=== PATIENT | female | born 1975 | race Caucasian/White ===

== ENCOUNTER 2020-07-02 10:34 | Inpatient (IN) | payer BC, SELFPAY ==
[2020-02-28 10:05] VITALS: BMI 31.1
[2020-07-02] VITALS (8 sets, daily range): BP systolic 122–155; BP diastolic 11–111; PULSE 91–118; RESP 16–18; TEMP 36.3–37.3; O2SAT 95–98; BMI 26.6; BMI 27.6
--- NOTE | 2020-07-02 10:53 | EKG12_ITS ---
Test Reason : SUB ABUSE Blood Pressure : / mmHG Vent. Rate : 108 BPM Atrial Rate : 108 BPM P-R Int : 132 ms QRS Dur : 090 ms QT Int : 350 ms P-R-T Axes : 061 032 054 degrees QTc Int : 469 ms Sinus tachycardia Otherwise normal ECG Confirmed by LETICIA VILLARREAL, BONIFACIO ([id number]), story editor SHIRLEY HSIEH ([id number]) on 07/04/2020 8:19:14 AM Referred By: Confirmed By:BONIFACIO KELLY MD
--- NOTE | 2020-07-02 11:14 | EX.ED.DYSGE1 ---
HPI History of Present Illness Chief Complaint: Substance Abuse Informant: patient and spouse/S.O. Onset/Context/Timing Onset: Month(s) Context: Gradual Onset Timing: Continuous Quality: Drinks approximately 1/5 of vodka daily since December Location: Home Current Severity: Moderate Maximum Severity: Severe Worsened by: Abstinence Relieved by: Drinking Associated Symptoms Associated Symptoms: Abdominal cramps, tremors, withdrawal-like symptoms Narrative Narrative: Patient is a 44-year-old woman with history of hypertension who has not been compliant with her medication. Who presents with significant other for detox. She has been drinking for years. Since December she has been consuming approximately 1/5 of vodka per day. She works in the [employer]. She denies smoking. She denies drug use. She states she is never entered a detox program. She presents today because it is interfering with her work and she knows she needs help and cannot stop on her own. She denies headache, visual disturbance, ringing in ears or decreased hearing. Denies trouble with speech or swallowing. She denies cardiac or respiratory symptoms. She does report intermittent cramping abdominal pain. She states her stool has been maroon and attributes the color to drinking cranberry juice. The stool does not have an odor and not sticky. She also reports pink-colored urine. She denies dysuria, frequency, urgency or hematuria. She has had no recent falls or head trauma. She denies history of coagulopathy. Prior similar symptoms: Yes Recent Illness/Hospitalization: No [facility] Medical History HTN (hypertension) Home Medications atenolol 25 mg tablet 25 mg PO DAILY 02/28/20 [History Last Taken Unknown] levonorgestrel 20 mcg/24 hours (6 yrs) 52 mg intrauterine device 1 device INTRA-UTER ONCE 02/28/20 [History Last Taken Unknown] melatonin 3 mg capsule 3 mg PO HS PRN 02/28/20 [History Last Taken Unknown] Allergy/AdvReac Type Severity Reaction Status Date / Time Penicillins AdvReac Mild PT UNSURE Verified 02/28/20 09:59 OF REACTION Family History Unknown Breast cancer Grandfather CVA (cerebral vascular accident) Surgical History History of tonsillectomy History of tubal ligation Social History household members: spouse and children number of children: 4 current occupational status: employed current occupation: [employer] history of recent travel: No sexually active: Yes Smoking Status: Never smoker alcohol intake: never substance use type: does not use what type of physical activity do you participate in: walking and bicycling seatbelt use: always do you feel safe at home: Yes additional social history: - Dayne JENSEN ROS ED Constitutional Constitutional ED: Reports sweats; Denies chills, fever(s) or subjective Eyes Eyes: Denies blurry vision, change in vision or diplopia ENT ENT ED: Denies ear pain, rhinorrhea or sore throat Cardiovascular Cardiovascular: Reports palpitations and racing heartbeat; Denies chest pain or orthopnea Respiratory/Chest Respiratory/Chest: Reports cough; Denies dyspnea, dyspnea on exertion, orthopnea or sputum Gastrointestinal Gastrointestinal: Reports abdominal pain and nausea; Denies constipation, diarrhea, melena or vomiting Genitourinary Genitourinary ED: Denies dysuria, hematuria or urinary frequency Musculoskeletal Musculoskeletal: Denies arthralgias, back pain, myalgias or neck pain Integumentary Denies rash Neurologic Neurologic: Denies headache(s), paresthesias or weakness Psychiatric Psychiatric: Reports anxiety and depression; Denies suicidal thoughts Allergic/Immunologic Allergic/Immunologic ED: Denies mouth swelling or urticaria EXAM Physical Exam Const Vital Signs: 07/02/20 10:35 07/02/20 11:33 Temperature 97.3 F L 97.3 F L Temperature Source Temporal Temporal Pulse Rate 114 H 114 H Respiratory Rate 16 16 Blood Pressure 150/111 H 150/11 H Blood Pressure Mean 124 57 Blood Pressure Source Monitor Blood Pressure Position Semi-Fowlers Pulse Ox 96 96 Oxygen Delivery Method Room Air Room Air Positive well nourished and well developed General Appearance ED: well developed and other Patient appears anxious HEENT Reports TM's clear and moist mucous membranes Negative for trauma or tenderness Tympanic Membrane ED: Yes TM's clear Eyes PERRL and EOMs intact bilaterally General Eye ED: Negative for pale conjunctiva or scleral icterus Neck no lymphadenopathy, supple and no JVD Neck Narrative: Trachea is midline. Chest Wall inspection of chest normal Resp normal respiratory effort and clear to auscultation bilaterally Effort and Inspection: Negative for pain with movement Cardio regular rhythm, S1 normal heart sound, S2 normal heart sound and no murmurs Rate: tachycardic GI normal to inspection, nondistended, normoactive bowel sounds Back/Spine no CVA tenderness Cervical Spine: Negative for cervical spine tenderness Thoracic Spine / Upper Back: Negative for thoracic spinal tenderness or paraspinal muscle tenderness Extremity normal to inspection General Extremety ED: Negative for edema or tenderness General Extremity: Negative for edema Neuro oriented x3, CN's II-XII intact bilaterally and no sensory deficits noted Sensorium / Orientation: alert and other Reflexes are brisk and there is 4-5 beats of clonus at the ankles bilaterally. Motor Exam: strength 5/5 throughout Psych mental status grossly normal Mood & Affect: anxious Skin no rashes or lesions noted and no wounds MDM MDM MDM Narrative Medical decision making narrative: Baseline blood work was ordered to assess H&H because of reported pink-colored urine and maroon-colored stool to rule out anemia. Also complains of metabolic panel was obtained to assess liver enzymes and BUN to creatinine ratio which would be elevated if patient has acute recent GI bleed. PT/INR was obtained to rule out coagulopathy in light of the amount of alcohol she consumes per day. Patient is experiencing withdrawal symptoms of is treated with IV lorazepam and p.o. phenobarb. Patient will need admission for alcohol withdrawal. Lab Data Attestation: I reviewed the patient's lab results. Labs: Laboratory Results - last 24 hr 07/02/20 07/02/20 07/02/20 11:10 11:10 11:10 WBC 5.6 RBC 4.44 Hgb 15.0 Hct 43.7 MCV 98.4 MCH 33.8 H MCHC 34.3 RDW Std Deviation 45.0 H RDW Coeff of Gabriella 12.3 Plt Count 117 L MPV 9.9 Immature Gran % (Auto) 0.500 Neut % (Auto) 79.0 H Lymph % (Auto) 9.3 L [place] % (Auto) 10.7 H Eos % (Auto) 0.0 Baso % (Auto) 0.5 Absolute Neuts (auto) 4.4 Absolute Lymphs (auto) 0.52 L Nucleated RBC % 0 PT 12.3 INR 1.0 Sodium 134 L Potassium 3.2 L Chloride 95 L Carbon Dioxide 27.0 Anion Gap 12 BUN 11 Creatinine 0.57 Estim Creat Clear Calc 121.20 Est GFR (MDRD) Af Amer 148 Est GFR (MDRD) Non-Af 122 BUN/Creatinine Ratio 19.4 Glucose 108 H Calcium 9.4 Total Bilirubin 1.70 H AST 159 H ALT 101 H Alkaline Phosphatase 96 Total Protein 7.9 Albumin 4.0 Globulin 3.9 Albumin/Globulin Ratio 1.0 Urine Opiates Screen Urine Methadone Screen Ur Barbiturates Screen Ur Phencyclidine Scrn Ur Amphetamines Screen U Methamphetamin-MDMA U Benzodiazepines Scrn Urine Cocaine Screen U Cannabinoids Screen Ur Drug Screen Comment Ethyl Alcohol 07/02/20 07/02/20 11:10 11:20 WBC RBC Hgb Hct MCV MCH MCHC RDW Std Deviation RDW Coeff of Gabriella Plt Count MPV Immature Gran % (Auto) Neut % (Auto) Lymph % (Auto) [place] % (Auto) Eos % (Auto) Baso % (Auto) Absolute Neuts (auto) Absolute Lymphs (auto) Nucleated RBC % PT INR Sodium Potassium Chloride Carbon Dioxide Anion Gap BUN Creatinine Estim Creat Clear Calc Est GFR (MDRD) Af Amer Est GFR (MDRD) Non-Af BUN/Creatinine Ratio Glucose Calcium Total Bilirubin AST ALT Alkaline Phosphatase Total Protein Albumin Globulin Albumin/Globulin Ratio Urine Opiates Screen NEGATIVE Urine Methadone Screen NEGATIVE Ur Barbiturates Screen NEGATIVE Ur Phencyclidine Scrn NEGATIVE Ur Amphetamines Screen NEGATIVE U Methamphetamin-MDMA NEGATIVE U Benzodiazepines Scrn NEGATIVE Urine Cocaine Screen NEGATIVE U Cannabinoids Screen POSITIVE H Ur Drug Screen Comment Ethyl Alcohol 100.0 Talk screen is positive for cannabis. Alcohol level is 100. CBC and H&H unremarkable. BUN/creatinine ratio is normal. Suspect her stool is colored because of cranberry juice. EKG Initial EKG: Interpretation: Sinus Tachycardia (Ventricular rate 108. LA interval is 132 ms. QS duration 90 ms. QT duration 350 ms. [place] is normal. Other than the tachycardia the EKG is normal.) Treatment and Re-Evaluation Comments:: Plan is to page hospitalist for admission to detox for alcohol withdrawal. Discharge Plan Dx/Rx/DC Orders Clinical Impression: Alcohol withdrawal, Sinus tachycardia by electrocardiogram, High blood pressure Disposition Disposition: Acute Care [facility]
[2020-07-02 11:17] LABS: Absolute Lymphocyte Count 0.52 X10^3/uL (0.83-4.51); Absolute Neutrophil Count 4.4 X10^3/uL (2.0-7.7); Basophil# 0.03 X10^3/uL; Basophil% 0.5 % (0-1); Hematocrit 43.7 % (37-47); Lymphocyte # 0.52 X10^3/ul (0.83-4.51); Lymphocyte % 9.3 % (19-41); Mean Corp Hgb Conc 34.3 g/dL (32-36); Mean Corpuscular Hgb 33.8 pg (27.0-32.0); Mean Corpuscular Volume 98.4 fL (81-99); Mean Platelet Vol. 9.9 fl (6.2-12.0); Monocyte% 10.7 % (0-10); NRBC Flagged by Analyzer 0 % (0-5); Neutrophil # 4.44 X10^3/uL (2.7-7.7); POSITIVE DIFFERENTIAL YES; Platelet Count 117 K/mm3 (150-450); RBC Distribution Width CV 12.3 % (11.6-14.6); Red Blood Count 4.44 M/mm3 (4.2-5.4); White Blood Count 5.6 K/mm3 (4.4-11.0)
[2020-07-02 11:23] LABS: Differential Indicated SCAN CRITERIA MET
[2020-07-02 11:25] LABS: Prothrombin Time (Protime)PT. 12.3 SECONDS (11.7-14.9)
[2020-07-02] MEDS: LORazepam 2 MG/ML Syringe 1 MG IV (11:25)
[2020-07-02] MEDS: Phenobarbital 32.4 MG Tablet 97.2 MG PO (11:25)
[2020-07-02 11:32] LABS: BUN 11 mg/dL (7-18); BUN/Creat Ratio 19.4 RATIO (10-20); Creatinine, Serum 0.57 mg/dL (0.55-1.02); EST Glomerular Filtration Rate 122 mL/min (>60); Est Glom Filt Rate - Afr Amer 148 mL/min (>60); Glucose 108 mg/dL (74-106); Protein, Total 7.9 g/dL (6.4-8.2)
[2020-07-02 11:33] LABS: AST(SGOT) 159 U/L (15-37); Alanine Aminotransfer ALT/SGPT 101 U/L (13-56); Alkaline Phosphatase 96 U/L (45-117); Anion Gap 12 (5-15); Calcium,Total 9.4 mg/dL (8.5-10.1); Chloride 95 mmol/L (98-107); Globulin 3.9 g/dL (2.2-4.2); Potassium 3.2 mmol/L (3.5-5.1); Sodium Level 134 mmol/L (136-145)
[2020-07-02] MEDS: Ondansetron 4 MG/2 ML Vial IV (11:41)
[2020-07-02 11:52] LABS: Amphetamine Urine VISTA NEGATIVE (<1000 ng/mL); Barbiturate Urine VISTA NEGATIVE (< 200 ng/mL); Benzodiazepine Urine VISTA NEGATIVE (< 200 ng/mL); Cocaine Urine VISTA NEGATIVE (< 300 ng/mL); Ecstacy Urine VISTA NEGATIVE (< 500 ng/mL); Methadone Urine VISTA NEGATIVE (< 300 ng/mL); PCP Urine VISTA NEGATIVE (< 25 ng/mL); THC Urine VISTA POSITIVE (< 50 ng/mL); Vista UDS pH Range 5
--- NOTE | 2020-07-02 12:25 | HP.PCM.HOS_ITS ---
HPI - General General Date of Admission: 07/02/20 HPI Narrative JOZEF MORAES, is a 44 F who presents with tremors, feeling hot and cold, generalised malaise seeking assistance for medical stabilization from acute alcohol withdrawal. She has been drinking about 1/2 pint of vodka daily since December 2019 when her mother . She drinks and goes into withdrawal and then has to drink to prevent withdrawal. Her vitals in the ED showed elevated BP and HR because she has not been taking her atenolol. [facility] Medical History HTN (hypertension) Home Medications atenolol 25 mg tablet 25 mg PO DAILY 02/28/20 [History Last Taken Unknown] levonorgestrel 20 mcg/24 hours (6 yrs) 52 mg intrauterine device 1 device INTRA- UTER ONCE 02/28/20 [History Last Taken Unknown] melatonin 3 mg capsule 3 mg PO HS PRN 02/28/20 [History Last Taken 07/01/20 22:00] Allergy/AdvReac Type Severity Reaction Status Date / Time Penicillins AdvReac Mild Other Verified 07/02/20 15:15 Family History (Updated 07/02/20 @ 20:[address] Shayy James MD) Unknown Breast cancer Mother Grandfather CVA (cerebral vascular accident) Father Alcoholism Surgical History History of tonsillectomy History of tubal ligation Social History household members: spouse and children number of children: 4 current occupational status: employed current occupation: [employer] history of recent travel: No sexually active: Yes Smoking Status: Former smoker alcohol intake: never substance use type: does not use what type of physical activity do you participate in: walking and bicycling seatbelt use: always do you feel safe at home: Yes additional social history: - Dayne ROS Constitutional Constitutional: Reports anorexia, chills, fatigue, malaise and weakness; Denies fever(s) Eyes Eyes: Denies blurry vision, change in eye color, change in vision or discharge from eye(s) Gastrointestinal Gastrointestinal: Denies abdominal pain, coffee ground emesis, constipation, diarrhea, dyspepsia or hematemesis Genitourinary Genitourinary: Denies burning urination, difficulty urinating, dysuria or urinary frequency Musculoskeletal Musculoskeletal: Denies arthralgias, back pain, joint pain, joint stiffness or joint swelling Neurologic Neurologic: Denies abnormal gait, abnormal speech, confusion, disequilibrium, dizziness or focal weakness Psychiatric Psychiatric: Reports anxiety; Denies depression, homicidal ideation or suicidal ideation Endocrine Endocrinology: Denies change in body appearance, cold intolerance, excessive sweating or heat intolerance Hematologic/Lymphatic Hematologic/Lymphatic: Denies anemia, easy bleeding or easy bruising Vital Signs Vital Signs Vital Signs: 07/02/20 10:35 07/02/20 11:33 Temperature 97.3 F L 97.3 F L Temperature Source Temporal Temporal Pulse Rate 114 H 114 H Respiratory Rate 16 16 Blood Pressure 150/111 H 150/11 H Blood Pressure Mean 124 57 Blood Pressure Source Monitor Blood Pressure Position Semi-Fowlers Pulse Ox 96 96 Oxygen Delivery Method Room Air Room Air Physical Exam Const alert and oriented x3 Constitutional Narrative: appears slightly anxious General Appearance: cooperative HEENT normocephalic, head/scalp atraumatic, moist oral mucous membranes and oropharynx normal Eyes PERRL, EOMs intact bilaterally and conjunctivae normal Neck no lymphadenopathy and supple Resp normal respiratory effort and clear to auscultation bilaterally Cardio regular rate, regular rhythm, S1 normal heart sound, S2 normal heart sound and no murmurs GI normal to inspection, nondistended, normoactive bowel sounds, soft to palpation, non-tender, non-distended and hepatosplenomegaly Extremity normal to inspection Skin no rashes or lesions noted Neuro oriented x3 Sensorium / Orientation: awake and alert Psych Mood & Affect: anxious Lab / Micro Data Result Diagrams: 07/02/20 11:10 07/02/20 11:10 Labs: Laboratory Results - last 24 hr 07/02/20 07/02/20 07/02/20 11:10 11:10 11:10 WBC 5.6 RBC 4.44 Hgb 15.0 Hct 43.7 MCV 98.4 MCH 33.8 H MCHC 34.3 RDW Std Deviation 45.0 H RDW Coeff of Gabriella 12.3 Plt Count 117 L MPV 9.9 Immature Gran % (Auto) 0.500 Neut % (Auto) 79.0 H Lymph % (Auto) 9.3 L [place] % (Auto) 10.7 H Eos % (Auto) 0.0 Baso % (Auto) 0.5 Absolute Neuts (auto) 4.4 Absolute Lymphs (auto) 0.52 L Nucleated RBC % 0 PT 12.3 INR 1.0 Sodium 134 L Potassium 3.2 L Chloride 95 L Carbon Dioxide 27.0 Anion Gap 12 BUN 11 Creatinine 0.57 Estim Creat Clear Calc 121.20 Est GFR (MDRD) Af Amer 148 Est GFR (MDRD) Non-Af 122 BUN/Creatinine Ratio 19.4 Glucose 108 H Calcium 9.4 Total Bilirubin 1.70 H AST 159 H ALT 101 H Alkaline Phosphatase 96 Total Protein 7.9 Albumin 4.0 Globulin 3.9 Albumin/Globulin Ratio 1.0 Urine Opiates Screen Urine Methadone Screen Ur Barbiturates Screen Ur Phencyclidine Scrn Ur Amphetamines Screen U Methamphetamin-MDMA U Benzodiazepines Scrn Urine Cocaine Screen U Cannabinoids Screen Ur Drug Screen Comment Ethyl Alcohol 07/02/20 07/02/20 11:10 11:20 WBC RBC Hgb Hct MCV MCH MCHC RDW Std Deviation RDW Coeff of Gabriella Plt Count MPV Immature Gran % (Auto) Neut % (Auto) Lymph % (Auto) [place] % (Auto) Eos % (Auto) Baso % (Auto) Absolute Neuts (auto) Absolute Lymphs (auto) Nucleated RBC % PT INR Sodium Potassium Chloride Carbon Dioxide Anion Gap BUN Creatinine Estim Creat Clear Calc Est GFR (MDRD) Af Amer Est GFR (MDRD) Non-Af BUN/Creatinine Ratio Glucose Calcium Total Bilirubin AST ALT Alkaline Phosphatase Total Protein Albumin Globulin Albumin/Globulin Ratio Urine Opiates Screen NEGATIVE Urine Methadone Screen NEGATIVE Ur Barbiturates Screen NEGATIVE Ur Phencyclidine Scrn NEGATIVE Ur Amphetamines Screen NEGATIVE U Methamphetamin-MDMA NEGATIVE U Benzodiazepines Scrn NEGATIVE Urine Cocaine Screen NEGATIVE U Cannabinoids Screen POSITIVE H Ur Drug Screen Comment Ethyl Alcohol 100.0 Assessment & Plan Assessment/Plan (1) Alcohol withdrawal: QUALIFIERS: Complication of substance-induced condition: uncomplicated Qualified Code(s): F10.230 - Alcohol dependence with withdrawal, uncomplicated (2) Sinus tachycardia by electrocardiogram: (3) High blood pressure: QUALIFIERS: Hypertension type: essential hypertension Qualified Code(s): I10 - Essential (primary) hypertension (4) Hypokalemia: (5) Thrombocytopenia: (6) Elevated liver enzymes: PLAN: 1. Acute alcohol withdrawal, will monitor on phenobarb withdrawal protocol Continue on Folic acid and thiamine 2. Hypokalemia, will replace, recheck in am 3. Tachycardia, elevated BP secondary to beta-martha withdrawal effect vs alcohol withdrawal History of hypertension, on atenolol Will resume patient's atenolol, continue to monitor vitals 4, Thrombocytopenia, new, drop from 260 to 117, likely secondary to alcohol, Will monitor Visit Charges Inpatient E&M: 41887 Init Hosp L2
--- NOTE | 2020-07-02 13:40 | CM.ED ---
SOCIAL WORK Referral Source: Dr. Cuevas Reason for Referral: Substance Abuse-requesting detox from alcohol Met with patient in room. Introduced role and reason for referral. Patient reports relapsed with alcohol after mother . Patient reports has been to detox in the past, but not at [facility]. Education on [facility] provided. Patient reports signed agreement and reports no questions or concerns. Call to [facility], spoke with Gabrielle and updated on admission to [facility]. Gabrielle reports will be in tomorrow to complete assessment. Plan: Admit to [facility] Jeannine Trejo, CARDIOVASCULAR TECHNOLOGIST, WHEEL TUNER
[2020-07-02] MEDS: Phenobarbital 32.4 MG Tablet 64.8 MG PO ×3 (15:34→23:07)
[2020-07-02] MEDS: Atenolol 25 MG Tablet PO (16:24)
[2020-07-02] MEDS: Ondansetron 8 MG Tablet PO (19:47)
[2020-07-02] MEDS: Potassium Chloride Oral Tablet 20 MEQ 60 MEQ PO (21:31)
[2020-07-02] MEDS: traZODone 100 MG Tablet PO (23:07)
[2020-07-03] MEDS: hydrOXYzine PAM 25 MG Capsule 50 MG PO (01:20)
[2020-07-03 03:03] VITALS: BP 123/80; PULSE 91; RESP 16; TEMP 36.9; O2SAT 97
[2020-07-03] MEDS: Phenobarbital 32.4 MG Tablet 64.8 MG PO ×6 (03:06→23:48)
[2020-07-03 05:59] LABS: Absolute Lymphocyte Count 1.04 X10^3/uL (0.83-4.51); Absolute Neutrophil Count 2.7 X10^3/uL (2.0-7.7); Basophil# 0.03 X10^3/uL; Basophil% 0.7 % (0-1); Eosinophil# 0.04 X10^3/uL; Eosinophils% 0.9 % (0-5); Hematocrit 42.7 % (37-47); Hemoglobin 13.9 g/dL (12.0-15.0); Lymphocyte # 1.04 X10^3/ul (0.83-4.51); Lymphocyte % 23.9 % (19-41); Mean Corp Hgb Conc 32.6 g/dL (32-36); Mean Corpuscular Hgb 34.2 pg (27.0-32.0); Mean Corpuscular Volume 105.2 fL (81-99); Mean Platelet Vol. 11.2 fl (6.2-12.0); Monocyte# 0.55 X10^3/uL; Monocyte% 12.6 % (0-10); NRBC Flagged by Analyzer 0 % (0-5); Neutrophil # 2.68 X10^3/uL (2.7-7.7); Neutrophil % 61.4 % (47-70); Platelet Count 103 K/mm3 (150-450); RBC Distribution Width CV 12.3 % (11.6-14.6); RBC Distribution Width SD 48.4 fl (35.1-43.9); Red Blood Count 4.06 M/mm3 (4.2-5.4); White Blood Count 4.4 K/mm3 (4.4-11.0)
[2020-07-03 06:36] LABS: ALB/GLOB Ratio 1.2 RATIO (0.9-2.4); AST(SGOT) 123 U/L (15-37); Alanine Aminotransfer ALT/SGPT 79 U/L (13-56); Albumin, Serum 3.6 g/dL (3.2-5.0); Alkaline Phosphatase 85 U/L (45-117); Anion Gap 12 (5-15); BUN 17 mg/dL (7-18); BUN/Creat Ratio 29.1 RATIO (10-20); Calcium,Total 8.7 mg/dL (8.5-10.1); Chloride 96 mmol/L (98-107); Creatinine, Serum 0.58 mg/dL (0.55-1.02); EST Glomerular Filtration Rate 118 mL/min (>60); Est Glom Filt Rate - Afr Amer 143 mL/min (>60); Estimated Creatinine Clearance 119.11 ml/min; Globulin 3.1 g/dL (2.2-4.2); Glucose 71 mg/dL (74-106); Magnesium 1.7 mg/dL (1.6-2.6); Potassium 4.1 mmol/L (3.5-5.1); Protein, Total 6.7 g/dL (6.4-8.2); Sodium Level 134 mmol/L (136-145)
[2020-07-03 06:54] VITALS: BP 124/85; PULSE 91; RESP 16; TEMP 37; O2SAT 96
[2020-07-03] MEDS: Folic Acid 1 MG Tablet PO (08:44)
[2020-07-03] MEDS: Thiamine Hydrochloride 100 MG Tablet PO (08:44)
[2020-07-03] MEDS: Potassium Chloride Oral Tablet 20 MEQ 40 MEQ PO (08:44)
--- NOTE | 2020-07-03 08:48 | ADDICTION ---
This commercial lines underwriter met with PT to conduct ASAM, MSE, AUDIT assessments. All assessments completed, faxed to [facility] and placed in PT's chart. PT declined f/u coordination but states that she plans to f/u with a treatment agency upon d/c from [facility]. PT was provided resources and contact information for agencies in her preferred area. PT amiable to plan. No transportation needs identified.
[2020-07-03 10:45] VITALS: BP 126/86; PULSE 101; RESP 16; TEMP 37.4; O2SAT 96
[2020-07-03] MEDS: Atenolol 25 MG Tablet PO (10:48)
--- NOTE | 2020-07-03 12:15 | PN.HOSP_ITS ---
Documented by User: Myriam Camilo NP, CUST[employer]S COMPLIANCE MANAGER-C 07/03/20 12:20 Subjective Subjective: Patient seen and examined. No acute events overnight. States she feels well, no active withdrawal symptoms. States she plans for outpatient follow-up at discharge. Objective Data Objective Data Vital Signs: Vital Signs Temp Pulse Resp BP Pulse Ox 99.4 F H 101 H 16 126/86 H 96 07/03/20 10:45 07/03/20 10:45 07/03/20 10:45 07/03/20 10:45 07/03/20 10:45 Oxygen Delivery Method Room Air Weight: 176 lb 5.917 oz Body Mass Index (BMI) 27.6 Intake & Output: Intake and Output for Last 24 Hours 07/01/20 07/02/20 07/03/20 23:59 23:59 23:59 Intake Total 860 / 860 610 / 610 Balance 860 / 860 610 / 610 Lab / Micro Data Result Diagrams: 07/03/20 05:06 07/03/20 05:06 Labs: Laboratory Results - last 24 hr 07/03/20 07/03/20 05:06 05:06 WBC 4.4 RBC 4.06 L Hgb 13.9 Hct 42.7 MCV 105.2 H D MCH 34.2 H MCHC 32.6 RDW Std Deviation 48.4 H RDW Coeff of Gabriella 12.3 Plt Count 103 L MPV 11.2 Immature Gran % (Auto) 0.500 Neut % (Auto) 61.4 Lymph % (Auto) 23.9 [place] % (Auto) 12.6 H Eos % (Auto) 0.9 Baso % (Auto) 0.7 Absolute Neuts (auto) 2.7 Absolute Lymphs (auto) 1.04 Nucleated RBC % 0 Sodium 134 L Potassium 4.1 Chloride 96 L Carbon Dioxide 26.0 Anion Gap 12 BUN 17 Creatinine 0.58 Estim Creat Clear Calc 119.11 Est GFR (MDRD) Af Amer 143 Est GFR (MDRD) Non-Af 118 BUN/Creatinine Ratio 29.1 H Glucose 71 L Calcium 8.7 Magnesium 1.7 Total Bilirubin 2.10 H AST 123 H ALT 79 H Alkaline Phosphatase 85 Total Protein 6.7 Albumin 3.6 Globulin 3.1 Albumin/Globulin Ratio 1.2 Physical Exam Const alert, oriented x3 and no apparent distress Orientation / Consciousness: awake, oriented to person, oriented to place and oriented to time HEENT normocephalic and moist oral mucous membranes Eyes PERRL, EOMs intact bilaterally and conjunctivae normal Neck no lymphadenopathy Resp normal respiratory effort and clear to auscultation bilaterally Cardio regular rate, regular rhythm and no murmurs Peripheral Pulses: pulses 2+ throughout GI normal to inspection, nondistended, normoactive bowel sounds, non-tender and non-distended Extremity normal to inspection Skin no rashes or lesions noted Lesions: no lesions Rashes: no rashes Trauma: no lacerations or abrasions Neuro oriented x3 Sensorium / Orientation: awake and alert Psych affect normal Assessment & Plan Assessment/Plan (1) Alcohol withdrawal: QUALIFIERS: Complication of substance-induced condition: uncomplicated Qualified Code(s): F10.230 - Alcohol dependence with withdrawal, uncomplicated PLAN: 1. Acute alcohol withdrawal, chronic alcohol dependence-medical stabilization per protocol. Phenobarb taper. As needed regimen for somatic complaints. Continue folic acid, thiamine supplementation. [facility] consult. 2. Hypokalemia-replaced per protocol, trend BMP. 3. Hypertension-stable, continue atenolol. 4. Transaminitis/thrombocytopenia-suspect secondary to #1. Recommend outpatient CBC/liver profile follow-up. DVT prophylaxis-low risk, not indicated This patient was seen by Myriam Camilo NP-C under the supervision of Dr. James. Documented by User: Dr. Shayy James MD 07/03/20 14:41 Objective Data Lab / Micro Data Result Diagrams: 07/03/20 05:06 07/03/20 05:06 Addendum Addendum: This patient was seen in conjunction with Myriam Camilo NP. I have independently interviewed and examined the patient and reviewed pertinent historical, laboratory, and other data. Please refer to her note for patient's presentation, findings, and recommendations. Patient was seen and examined. She stated that she was doing well but however feels frustrated about the number of days she has to stay. Denied any tremors. No acute events overnight. Vitals were reviewed -stable Physical Exam: Gen:Comfortable, not pale, not jaundiced, alert oriented x3 CVS:HS I +II, regular, no murmurs RESP: CTA GI: BS present and normal, nontender, no palpable organs EXT:No edema Labs reviewed: ASSESSMENT: 1. Acute alcohol withdrawal 2. Hypertension 3. Hypokalemia/hypomagnesemia 4. Thrombocytopenia Meds reviewed Plan: Continue on alcohol withdrawal protocol Replace magnesium Repeat labs in am Visit Charges Inpatient E&M: 46344 Subs Hosp L2
[2020-07-03 14:45] VITALS: BP 114/72; PULSE 88; RESP 18; TEMP 37.2; O2SAT 99
[2020-07-03] MEDS: 0.9% Saline Lock 10 ML Syringe IV (15:24)
[2020-07-03 18:00] VITALS: BP 110/78; PULSE 95; RESP 16; TEMP 37.2; O2SAT 98
--- NOTE | 2020-07-03 20:46 | NURSING ---
When this RN entered the room, pt was sitting bedside and stated she needed to get out of here and is leaving AMA and needs to her IV removed. Physicians notified of pt decision. Upon entering the pt room again, the pt stated she is going to stay. Physicians notified of pt decision.
[2020-07-03] MEDS: Loperamide 2 MG Capsule PO (21:00)
[2020-07-03 23:30] VITALS: BP 122/72; PULSE 95; RESP 16; TEMP 36.6; O2SAT 98
[2020-07-03] MEDS: MELATONIN 3 MG TABLET PO (23:48)
[2020-07-04] MEDS: Loperamide 2 MG Capsule PO (02:34)
[2020-07-04] MEDS: hydrOXYzine PAM 25 MG Capsule 50 MG PO (02:34)
--- NOTE | 2020-07-04 02:50 | PCM.PN.BLA ---
Progress Note Nurse reported patient has loose stools with blood. Patient on Protonix. Check hemoglobin in a.m.. Check enteric pathogen panel and stool for C. difficile. Patient on Imodium. Patient has received Imodium as needed. Patient asking for Mylanta. Mylanta would not be ordered at this time. Metamucil ordered.
[2020-07-04] MEDS: Phenobarbital 32.4 MG Tablet 64.8 MG PO ×2 (03:21→06:47)
[2020-07-04] MEDS: 0.9% Saline Lock 10 ML Syringe IV (03:21)
[2020-07-04] MEDS: Psyllium 1 PACKET PO ×2 (03:21→10:36)
[2020-07-04 05:30] VITALS: BP 130/78; PULSE 91; RESP 16; TEMP 36.9; O2SAT 98
[2020-07-04 08:41] LABS: Absolute Lymphocyte Count 1.54 X10^3/uL (0.83-4.51); Basophil# 0.03 X10^3/uL; Basophil% 0.5 % (0-1); Eosinophil# 0.09 X10^3/uL; Eosinophils% 1.4 % (0-5); Hematocrit 41.2 % (37-47); Hemoglobin 13.8 g/dL (12.0-15.0); Lymphocyte # 1.54 X10^3/ul (0.83-4.51); Lymphocyte % 24.7 % (19-41); Mean Corp Hgb Conc 33.5 g/dL (32-36); Mean Corpuscular Hgb 34.2 pg (27.0-32.0); Mean Platelet Vol. 11.2 fl (6.2-12.0); Monocyte# 0.57 X10^3/uL; Monocyte% 9.1 % (0-10); NRBC Flagged by Analyzer 0 % (0-5); Neutrophil # 3.95 X10^3/uL (2.7-7.7); Neutrophil % 63.5 % (47-70); Platelet Count 110 K/mm3 (150-450); RBC Distribution Width SD 45.3 fl (35.1-43.9); Red Blood Count 4.04 M/mm3 (4.2-5.4); White Blood Count 6.2 K/mm3 (4.4-11.0)
[2020-07-04] MEDS: Potassium Chloride Oral Tablet 20 MEQ 40 MEQ PO (08:45)
[2020-07-04] MEDS: Folic Acid 1 MG Tablet PO (08:45)
[2020-07-04 08:58] LABS: AST(SGOT) 62 U/L (15-37); Alanine Aminotransfer ALT/SGPT 57 U/L (13-56); Albumin, Serum 3.5 g/dL (3.2-5.0); Alkaline Phosphatase 75 U/L (45-117); Anion Gap 7 (5-15); BUN 14 mg/dL (7-18); BUN/Creat Ratio 25.1 RATIO (10-20); Calcium,Total 8.9 mg/dL (8.5-10.1); Chloride 101 mmol/L (98-107); Creatinine, Serum 0.56 mg/dL (0.55-1.02); EST Glomerular Filtration Rate 124 mL/min (>60); Est Glom Filt Rate - Afr Amer 151 mL/min (>60); Estimated Creatinine Clearance 123.37 ml/min; Globulin 3.6 g/dL (2.2-4.2); Glucose 95 mg/dL (74-106); Potassium 3.9 mmol/L (3.5-5.1); Protein, Total 7.1 g/dL (6.4-8.2); Sodium Level 133 mmol/L (136-145)
[2020-07-04] MEDS: Atenolol 25 MG Tablet PO (10:36)
[2020-07-04] MEDS: Thiamine Hydrochloride 100 MG Tablet PO (10:36)
--- NOTE | 2020-07-04 10:59 | PCM.DC ---
Discharge Instructions Diet Discharge Diet: No restrictions Activity Discharge Activity: Return to Normal Activity Dressing / Incision Call your doctor if you observe: Shortness of breath, Dizziness, Chest pain and - (Ongoing blood in stool) Follow Up Care Test Results: Test results from this visit will be discussed in further detail at your follow-up appointment, if applicable. Discharge Plan Admission Admit Date/Time: 07/02/20 12:23 Primary Reason for Your Visit: Alcohol withdrawal Attending Provider: Shayy James Instructions Additional Instructions / Restrictions: Follow-up with Pet[facility] as scheduled. Discharge Orders/Prescriptions Prescriptions: New loperamide 2 mg Capsule 2 mg PO Q4H PRN PRN (Reason: LOOSE STOOLS) Qty: 0 RF: 0 pantoprazole [Protonix] 40 mg tablet,delayed release (DR/EC) 40 mg PO DAILY Qty: 30 RF: 0 Continued levonorgestrel 20 mcg/24 hours (6 yrs) 52 mg intrauterine device 20 mcg/24 hours (6 yrs) 52 mg intrauterine device 1 device INTRA-UTER ONCE RF: 0 melatonin 3 mg capsule 3 mg PO HS PRN (Reason: Sleep Aide) RF: 0 atenolol 25 mg tablet 25 mg PO DAILY RF: 0 Referrals / Follow Up: [facility] [Other] - In 1 Week [facility] [Other] Disposition Disposition (needs filled in before D/C Order can be placed): Home, self care
--- NOTE | 2020-07-04 11:08 | PCM.DC.SUM ---
Documented by User: Myriam Camilo NP, VIBRATORY PILE DRIVER-C 07/04/20 11:11 Providers Date of Admission: 07/02/20 Primary Care Physician: PLACIDO FOREMAN Reason For Visit: ACUTE ALCOHOL WITHDRAWAL Diagnosis Discharge Diagnosis (1) Alcohol withdrawal: Status: Acute Code(s): F10.239 - Alcohol dependence with withdrawal, unspecified Qualifiers: Complication of substance-induced condition: uncomplicated Qualified Code(s): F10.230 - Alcohol dependence with withdrawal, uncomplicated Medications at Discharge Home Medications atenolol 25 mg tablet 25 mg PO DAILY 02/28/20 levonorgestrel 20 mcg/24 hours (6 yrs) 52 mg intrauterine device 1 device INTRA-UTER ONCE 02/28/20 melatonin 3 mg capsule 3 mg PO HS PRN 02/28/20 loperamide 2 mg PO Q4H PRN PRN #0 cap 07/04/20 pantoprazole [Protonix] 40 mg PO DAILY #30 tab 07/04/20 Hospital Course Operations None Procedures None Summary of Care Provided Minutes Spent on Discharge: 35 Hospital Course: Patient is a 44-year-old female admitted 07/02/2020 requesting detox from alcohol. 1. Acute alcohol withdrawal, chronic alcohol dependence-medical stabilization per protocol. Phenobarb taper during admission. [facility] consulted during admission. Follow-up as scheduled. 2. Hypokalemia-replaced per protocol, trend BMP. 3. Hypertension-stable, continue atenolol. 4. Transaminitis/thrombocytopenia-suspect secondary to #1. Recommend outpatient CBC/liver profile follow-up. 5. Diarrhea with Hemoccult positive stool-C. difficile negative. Enteric pathogen panel pending at discharge. Diarrhea improved. Hemoglobin 13.8. Initiated on Protonix 40 mg daily. Outpatient follow-up if recurrent diarrhea. May use as needed Imodium. Physical Exam Const alert, oriented x3 and no apparent distress Orientation / Consciousness: awake, oriented to person, oriented to place and oriented to time HEENT normocephalic and moist oral mucous membranes Eyes PERRL, EOMs intact bilaterally and conjunctivae normal Neck no lymphadenopathy Resp normal respiratory effort and clear to auscultation bilaterally Cardio regular rate, regular rhythm and no murmurs Peripheral Pulses: pulses 2+ throughout GI normal to inspection, nondistended, normoactive bowel sounds, non-tender and non-distended Extremity normal to inspection Skin no rashes or lesions noted Lesions: no lesions Rashes: no rashes Trauma: no lacerations or abrasions Neuro oriented x3 Sensorium / Orientation: awake and alert Psych affect normal Patient seen and examined prior to discharge. Physical assessment as noted above. Patient is stable for discharge with follow up recommendations as noted above. This patient was seen by ADELAIDA Barron under the supervision of Dr. James. ABG / Lab / Microbiology Data Result Diagrams: 07/04/20 08:20 07/04/20 08:20 Laboratory: Laboratory Results - last 24 hr 07/04/20 07/04/20 08:20 08:20 WBC 6.2 RBC 4.04 L Hgb 13.8 Hct 41.2 MCV 102.0 H MCH 34.2 H MCHC 33.5 RDW Std Deviation 45.3 H RDW Coeff of Gabriella 12.0 Plt Count 110 L MPV 11.2 Immature Gran % (Auto) 0.800 Neut % (Auto) 63.5 Lymph % (Auto) 24.7 [place] % (Auto) 9.1 Eos % (Auto) 1.4 Baso % (Auto) 0.5 Absolute Neuts (auto) 4.0 Absolute Lymphs (auto) 1.54 Nucleated RBC % 0 Sodium 133 L Potassium 3.9 Chloride 101 Carbon Dioxide 25.0 Anion Gap 7 BUN 14 Creatinine 0.56 Estim Creat Clear Calc 123.37 Est GFR (MDRD) Af Amer 151 Est GFR (MDRD) Non-Af 124 BUN/Creatinine Ratio 25.1 H Glucose 95 Calcium 8.9 Total Bilirubin 1.10 H AST 62 H ALT 57 H Alkaline Phosphatase 75 Total Protein 7.1 Albumin 3.5 Globulin 3.6 Albumin/Globulin Ratio 1.0 Microbiology: Microbiology 07/04/20 03:41 Enteric Bacteriology - Final Stool 07/04/20 03:41 C. difficile DNA Amplification - Final Stool 07/04/20 03:41 Stool Occult Blood (CALE) - Final Stool Occult Blood Positive Microbiology 07/04/20 03:41 Stool Enteric Bacteriology - Final 07/04/20 03:41 Stool C. difficile DNA Amplification - Final 07/04/20 03:41 Stool Stool Occult Blood (CALE) - Final Occult Blood Positive D/C Instructions Discharge Diet: No restrictions Discharge Activity: Return to Normal Activity Call your doctor if you observe: Shortness of breath, Dizziness, Chest pain and - (Ongoing blood in stool) Meaningful Use Info Meaningful Use Diagnoses (Choose all that apply): None applicable Discharge Plan Admission Admit Date/Time: 07/02/20 12:23 Primary Reason for Your Visit: Alcohol withdrawal Attending Provider: Shayy James Instructions Additional Instructions / Restrictions: Patient Problems: Altered Health Status related to Hospitalization Patient Goals: *Optimal Level of Health *Keep Appointments *Medication Compliance *Remain SafeFollow-up with [facility] as scheduled. Discharge Orders/Prescriptions Prescriptions: New loperamide 2 mg Capsule 2 mg PO Q4H PRN PRN (Reason: LOOSE STOOLS) Qty: 0 RF: 0 pantoprazole [Protonix] 40 mg tablet,delayed release (DR/EC) 40 mg PO DAILY Qty: 30 RF: 0 Continued levonorgestrel 20 mcg/24 hours (6 yrs) 52 mg intrauterine device 20 mcg/24 hours (6 yrs) 52 mg intrauterine device 1 device INTRA-UTER ONCE RF: 0 melatonin 3 mg capsule 3 mg PO HS PRN (Reason: Sleep Aide) RF: 0 atenolol 25 mg tablet 25 mg PO DAILY RF: 0 Referrals / Follow Up: PLACID[facility] FOREMAN [Other] - In 1 Week [facility]AC[facility] FOREM[facility] [Other] Disposition Disposition (needs filled in before D/C Order can be placed): Home, self care Documented by User: Dr. Shayy James MD 07/06/20 13:07 Providers Date of Admission: 07/02/20 Reason For Visit: ACUTE ALCOHOL WITHDRAWAL Medications at Discharge Home Medications atenolol 25 mg tablet 25 mg PO DAILY 02/28/20 levonorgestrel 20 mcg/24 hours (6 yrs) 52 mg intrauterine device 1 device INTRA-UTER ONCE 02/28/20 melatonin 3 mg capsule 3 mg PO HS PRN 02/28/20 loperamide 2 mg PO Q4H PRN PRN #0 cap 05/12/21 pantoprazole [Protonix] 40 mg PO DAILY #30 tab 07/04/20 ABG / Lab / Microbiology Data Result Diagrams: 07/04/20 08:20 07/04/20 08:20 Discharge Plan Admission Admit Date/Time: 07/02/20 12:23 Primary Reason for Your Visit: Alcohol withdrawal Attending Provider: Shayy James Instructions Additional Instructions / Restrictions: Patient Problems: Altered Health Status related to Hospitalization Patient Goals: *Optimal Level of Health *Keep Appointments *Medication Compliance *[facility] Discharge Orders/Prescriptions Prescriptions: New loperamide 2 mg Capsule 2 mg PO Q4H PRN PRN (Reason: LOOSE STOOLS) Qty: 0 RF: 0 pantoprazole [Protonix] 40 mg tablet,delayed release (DR/EC) 40 mg PO DAILY Qty: 30 RF: 0 Continued levonorgestrel 20 mcg/24 hours (6 yrs) 52 mg intrauterine device 20 mcg/24 hours (6 yrs) 52 mg intrauterine device 1 device INTRA-UTER ONCE RF: 0 melatonin 3 mg capsule 3 mg PO HS PRN (Reason: Sleep Aide) RF: 0 atenolol 25 mg tablet 25 mg PO DAILY RF: 0 Referrals / Follow Up: PLACIDO FOREMAN [Other] - In 1 Week PLACIDO FOREMAN [Other] Disposition Disposition (needs filled in before D/C Order can be placed): Home, self care Addendum Addendum: This patient was seen in conjunction with Myriam Camilo NP. I have independently interviewed and examined the patient and reviewed pertinent historical, laboratory, and other data. Please refer to her note for patient's presentation, findings, and recommendations. 44-year-old female with past medical history of chronic alcohol abuse who comes in requesting for medical stabilization. Patient drinks about half pint of vodka every day. She has been drinking since December when her mother . [facility] and managed on the alcohol withdrawal protocol. She had hypokalemia that was replaced. She continued to be stable and was seen by 180. She will follow up with [facility]. She had thrombocytopenia that was secondary to alcohol. She was kept of heparin products. Platelet count improved. She was discharged in a stable state to follow-up with [facility] in the outpatient. On the day of discharge, patient was seen and examined. Denied any new complaints. No acute events overnight. Vitals were reviewed -stable Physical Exam: Gen:Comfortable, not pale, not jaundiced, alert oriented x3 CVS:HS I +II, regular, no murmurs RESP: CTA GI: BS present and normal, nontender, no palpable organs EXT:No edema Visit Charges Inpatient E&M: 50794 Disch Hosp
--- NOTE | 2020-07-04 11:26 | PHA.DC.MR ---
Pharmacy Service has performed discharge medication reconciliation for this patient. The patient's discharge medication list was reviewed for discrepancies and discrepancies were resolved. Home Medications atenolol 25 mg tablet 25 mg PO DAILY 02/28/20 levonorgestrel 20 mcg/24 hours (6 yrs) 52 mg intrauterine device 1 device INTRA-UTER ONCE 02/28/20 melatonin 3 mg capsule 3 mg PO HS PRN 02/28/20 loperamide 2 mg PO Q4H PRN PRN #0 cap 07/04/20 pantoprazole [Protonix] 40 mg PO DAILY #30 tab 07/04/20
[2020-07-04 11:30] VITALS: BP 128/79; BP 129/79; PULSE 94; RESP 16; TEMP 36.8; O2SAT 94
== END 2020-07-04 11:45 | disposition home or self-care (01) | DRG 897 ==
LOC: ED 12:17 → PCU 07-03 08:45
PROVIDERS: Admitting Provider Internal Medicine; Emergency Provider Emergency Medicine; Visit Provider Internal Medicine
DX: F10.230 Alcohol dependence with withdrawal, uncomplicated (principal); Z87.891 Personal history of nicotine dependence; E87.6 Hypokalemia; I10 Essential (primary) hypertension; D69.6 Thrombocytopenia, unspecified; Z91.14 Patient's other noncompliance with medication regimen; R74.01 Elevation of levels of liver transaminase levels; E83.42 Hypomagnesemia; R19.5 Other fecal abnormalities; R19.7 Diarrhea, unspecified
CPT/HCPCS: 36415; 80053; 80307; 82077; 82274; 83735; 85025; 85610; 87493; 87506; 93005; 99284; A4216; J2405

== ENCOUNTER 2021-08-02 09:51 | Observation (INO) | payer BC, SELFPAY ==
[2021-08-02 09:52] VITALS: BP 181/112; PULSE 115; RESP 16; TEMP 36.4; O2SAT 96; BMI 26.6
--- NOTE | 2021-08-02 10:12 | EX.ED.SAOD ---
HPI History of Present Illness Chief Complaint: Substance Abuse Informant: patient Onset/Context/Timing Onset: Today Context: Gradual Onset Timing: Continuous Quality: Palpitations Location: Chest Worsened by: Nothing Relieved by: Drinking alcohol Associated Symptoms Associated Symptoms: Positive for palpatations; Negative for vomiting*, diarrhea*, fever*, rash*, seizure, tremor, change in mental status, trauma, suicidal ideation and homicidal ideation Narrative Narrative: Patient presents for resting detox from alcohol. Patient states that she drinks a half a bottle of margaritas per day. Patient states her last drink was at midnight (10 hours ago). Patient denies any nausea or vomiting. Patient states she feels like her heart is racing. Patient denies any seizures or tremors. Patient denies any fevers or chills. Patient states her symptoms get better when she drinks alcohol. Patient denies any suicidal or homicidal ideations. [facility] Medical History HTN (hypertension) Home Medications atenolol 25 mg tablet 25 mg PO DAILY 02/28/20 [History Last Taken Unknown] Allergy/AdvReac Type Severity Reaction Status Date / Time Penicillins AdvReac Mild Other Verified 08/02/21 09:52 Family History (Updated 07/02/20 @ 20:[address] Shayy James MD) Unknown Breast cancer Mother Grandfather CVA (cerebral vascular accident) Father Alcoholism Surgical History History of tonsillectomy History of tubal ligation Social History household members: spouse and children number of children: 4 current occupational status: employed current occupation: [employer] history of recent travel: No sexually active: Yes Smoking Status: Former smoker alcohol intake: never substance use type: does not use what type of physical activity do you participate in: walking and bicycling seatbelt use: always do you feel safe at home: Yes additional social history: - Dayne JENSEN ROS ED Constitutional Constitutional ED: Denies chills or fever(s) Eyes Eyes: Denies blurry vision or change in vision ENT ENT ED: Denies rhinorrhea or sore throat Cardiovascular Cardiovascular: Reports palpitations; Denies chest pain Respiratory/Chest Respiratory/Chest: Denies cough or dyspnea Gastrointestinal Gastrointestinal: Denies nausea or vomiting Genitourinary Genitourinary ED: Denies dysuria or hematuria Musculoskeletal Musculoskeletal: Denies back pain or neck pain Integumentary Denies abscess or rash Neurologic Neurologic: Denies headache(s) or weakness Allergic/Immunologic Allergic/Immunologic ED: Denies mouth swelling or urticaria EXAM Physical Exam Const Vital Signs: 08/02/21 09:52 Temperature 97.6 F L Temperature Source Temporal Pulse Rate 115 H Respiratory Rate 16 Blood Pressure 181/112 H Blood Pressure Mean 135 Pulse Ox 96 Oxygen Delivery Method Room Air Positive well nourished and well developed General Appearance ED: well developed and NAD HEENT Reports moist mucous membranes Neck supple and no JVD Resp normal respiratory effort and clear to auscultation bilaterally Cardio regular rate, regular rhythm and no murmurs GI normal to inspection, nondistended, normoactive bowel sounds, soft to palpation and non-tender Palpation: soft Extremity normal to inspection General Extremety ED: Negative for edema or tenderness General Extremity: Negative for edema Neuro oriented x3, CN's II-XII intact bilaterally and no sensory deficits noted Sensorium / Orientation: alert Motor Exam: strength 5/5 throughout Psych mental status grossly normal Skin no rashes or lesions noted MDM MDM MDM Narrative Medical decision making narrative: Basic labs were obtained. Patient was given a dose of phenobarbital here. Case was discussed with the hospitalist. He will admit the patient to his service. Patient understood and was agreeable with the plan. All questions were answered. Lab Data Labs: Laboratory Results - last 24 hr 08/02/21 10:45 WBC 6.0 RBC 4.82 Hgb 15.2 H Hct 45.1 MCV 93.6 MCH 31.5 MCHC 33.7 RDW Std Deviation 49.9 H RDW Coeff of Gabriella 14.5 Plt Count 244 MPV 8.8 Immature Gran % (Auto) 0.500 Neut % (Auto) 61.8 Lymph % (Auto) 28.5 [place] % (Auto) 7.0 Eos % (Auto) 1.5 Baso % (Auto) 0.7 Absolute Neuts (auto) 3.7 Absolute Lymphs (auto) 1.70 Nucleated RBC % 0 Discharge Plan Dx/Rx/DC Orders Clinical Impression: Alcohol withdrawal, High blood pressure Disposition Disposition: Acute Care Hospital [facility]
--- NOTE | 2021-08-02 10:16 | CM.ED ---
Addendum entered by Rufina Moran 08/02/21 11:13: SW placed a call to Angela, addiction therapist, and updated her on pt's admission. Original Note: Social Work Note Reason for Referral: Pt presents to [facility] for detox SW met with pt. Pt confirms she is at [facility] for detox/RAMP program. Pt states that she drinks ETOH and her last drink was midnight. Pt states that she has been through the program before and aware of rules. Rufina Moran PAYROLL EXAMINER, TECHNICAL APPLICATIONS SCIENTIST
[2021-08-02 10:49] LABS: Absolute Neutrophil Count 3.7 X10^3/uL (2.0-7.7); Basophil# 0.04 X10^3/uL; Basophil% 0.7 % (0-1); Eosinophil# 0.09 X10^3/uL; Eosinophils% 1.5 % (0-5); Hematocrit 45.1 % (37-47); Hemoglobin 15.2 g/dL (12.0-15.0); Lymphocyte % 28.5 % (19-41); Mean Corp Hgb Conc 33.7 g/dL (32-36); Mean Corpuscular Hgb 31.5 pg (27.0-32.0); Mean Corpuscular Volume 93.6 fL (81-99); Mean Platelet Vol. 8.8 fl (6.2-12.0); Monocyte# 0.42 X10^3/uL; NRBC Flagged by Analyzer 0 % (0-5); Neutrophil # 3.69 X10^3/uL (2.7-7.7); Neutrophil % 61.8 % (47-70); Platelet Count 244 K/mm3 (150-450); RBC Distribution Width CV 14.5 % (11.6-14.6); RBC Distribution Width SD 49.9 fl (35.1-43.9); Red Blood Count 4.82 M/mm3 (4.2-5.4)
--- NOTE | 2021-08-02 10:57 | HP.PCM.HOS_ITS ---
HPI - General General Date of Admission: 08/02/21 HPI Narrative JOZEF MORAES, is a 46 F who presents to the hospital requesting detox from alcohol. She went through this about a year ago and was sober for about 8months and then she moved to a new job and has had increased stress and so she started drinking again. She states that she restarted drinking about 2 years ago after her mother . She does have a lot of stress generally however she has not spoken any mental health professional, she did try Zoloft a few years back which was beneficial but she stopped taking it because she did not like the idea of taking medications. [facility] Medical History HTN (hypertension) Home Medications atenolol 25 mg tablet 25 mg PO DAILY 02/28/20 [History Last Taken 08/01/21 10:00] Allergy/AdvReac Type Severity Reaction Status Date / Time Penicillins AdvReac Mild Other Verified 08/02/21 09:52 Family History (Updated 07/02/20 @ 20:[address] Shayy James MD) Unknown Breast cancer Mother Grandfather CVA (cerebral vascular accident) Father Alcoholism Surgical History History of tonsillectomy History of tubal ligation Social History household members: spouse and children number of children: 4 current occupational status: employed current occupation: [employer] history of recent travel: No sexually active: Yes Smoking Status: Former smoker alcohol intake: never substance use type: does not use what type of physical activity do you participate in: walking and bicycling seatbelt use: always do you feel safe at home: Yes additional social history: - Dayne ROS Constitutional Constitutional: Denies chills, fatigue, fever(s) or malaise Eyes Eyes: Denies blurry vision ENT HEENT: Denies headache(s) or nasal discharge Cardiovascular Cardiovascular: Reports palpitations; Denies chest pain, dyspnea on exertion or syncope Respiratory/Chest Respiratory/Chest: Denies cough, shortness of breath at rest or shortness of breath with exertion Gastrointestinal Gastrointestinal: Denies constipation, diarrhea, nausea or vomiting Genitourinary Genitourinary: Denies dysuria Neurologic Neurologic: Denies focal weakness, numbness or tremor(s) Psychiatric Psychiatric: Reports anxiety; Denies depression Vital Signs Vital Signs Vital Signs: 08/02/21 09:52 Temperature 97.6 F L Temperature Source Temporal Pulse Rate 115 H Respiratory Rate 16 Blood Pressure 181/112 H Blood Pressure Mean 135 Pulse Ox 96 Oxygen Delivery Method Room Air Weight Weight: 170 lb Body Mass Index (BMI) 26.6 Physical Exam Const alert, oriented x3 and no apparent distress Constitutional Narrative: tremor General Appearance: cooperative HEENT normocephalic and moist oral mucous membranes Eyes PERRL, EOMs intact bilaterally and conjunctivae normal Neck supple and no JVD Resp normal respiratory effort, no retractions, no use of accessory muscles and clear to auscultation bilaterally Auscultation: Negative for crackles, rales, rhonchi or wheezes Cardio regular rhythm, S1 normal heart sound, S2 normal heart sound and no murmurs Rate: tachycardic GI soft to palpation, non-tender and non-distended; Negative for hepatosplenomegaly Extremity no clubbing, cyanosis or edema Skin no rashes or lesions noted Neuro no focal motor deficits and no sensory deficits noted Psych Mood & Affect: anxious Results Lab / Micro Data Result Diagrams: 08/02/21 10:45 08/02/21 10:45 Labs: Laboratory Results - last 24 hr 08/02/21 10:45: WBC 6.0, RBC 4.82, Hgb 15.2 H, Hct 45.1, MCV 93.6, MCH 31.5, MCHC 33.7, RDW Std Deviation 49.9 H, RDW Coeff of Gabriella 14.5, Plt Count 244, MPV 8.8, Immature Gran % (Auto) 0.500, Neut % (Auto) 61.8, Lymph % (Auto) 28.5, [place] % (Auto) 7.0, Eos % (Auto) 1.5, Baso % (Auto) 0.7, Absolute Neuts (auto) 3.7, Absolute Lymphs (auto) 1.70, Nucleated RBC % 0 Assessment & Plan Assessment/Plan (1) Alcohol withdrawal: QUALIFIERS: Complication of substance-induced condition: uncomplicated Qualified Code(s): F10.230 - Alcohol dependence with withdrawal, uncomplicated PLAN: 1. Acute alcohol withdrawal/history of alcoholic hepatitis/anxiety/depression ? Last use was a around midnight ? Continue with the alcohol withdrawal protocol, will give a dose of phenobarb in the ER given her symptoms and her CIWA of 5 ? We will have her follow-up with 180 to establish outpatient management ? CMP is pending to evaluate for continued alcoholic hepatitis ? We will plan on starting her on Zoloft 2. Tobacco abuse ? She vapes ? We will continue with nicotine patch DVT: Ambulation Charges/Coding Visit Charges Inpatient E&M: 61752 Init Hosp L2
[2021-08-02 11:00] LABS: Internal QC Validated? YES +Cl - CLEAR BKGD; Pregnancy, Serum, hCG Quali. NEGATIVE Negative
[2021-08-02 11:06] LABS: ALB/GLOB Ratio 1.2 RATIO (0.9-2.4); AST(SGOT) 31 U/L (15-37); Alanine Aminotransfer ALT/SGPT 30 U/L (13-56); Alkaline Phosphatase 84 U/L (45-117); Anion Gap 4 (5-15); BUN 10 mg/dL (7-18); BUN/Creat Ratio 15.9 RATIO (10-20); Calcium,Total 8.7 mg/dL (8.5-10.1); Chloride 105 mmol/L (98-107); Creatinine, Serum 0.63 mg/dL (0.55-1.02); EST Glomerular Filtration Rate 108 mL/min (>60); Est Glom Filt Rate - Afr Amer 131 mL/min (>60); Estimated Creatinine Clearance 107.35 ml/min; Globulin 3.2 g/dL (2.2-4.2); Glucose 102 mg/dL (74-106); Lipase 91 U/L (73-393); Potassium 3.9 mmol/L (3.5-5.1); Protein, Total 7.2 g/dL (6.4-8.2); Sodium Level 139 mmol/L (136-145)
[2021-08-02 11:28] VITALS: BP 181/112; PULSE 115; RESP 16; TEMP 36.4; O2SAT 96
[2021-08-02 11:40] VITALS: BP 168/104; PULSE 98; RESP 16; TEMP 36.4; O2SAT 98
[2021-08-02] MEDS: Phenobarbital 32.4 MG Tablet 97.2 MG PO ×3 (12:02→21:05)
[2021-08-02] MEDS: Sertraline 50 MG Tablet PO (12:35)
[2021-08-02 12:44] VITALS: BMI 25.8
[2021-08-02] MEDS: Gabapentin 300 MG Capsule PO (15:17)
--- NOTE | 2021-08-02 15:52 | ADDICTION ---
This commercial lines underwriter met with PT to conduct ASAM, MSE, AUDIT assessments and to plan for d/c. PT A+Ox4 and participated actively. All assessments completed, and placed in PT's chart. PT plans to f/u with individual counselor at [facility] for follow-up counseling services. PT did not indicate a need for transportation post d/c from [facility].
[2021-08-02] MEDS: Ibuprofen 400 MG Tablet PO (16:05)
[2021-08-02] MEDS: Ondansetron 8 MG Tablet PO (16:12)
[2021-08-02] MEDS: Atenolol 25 MG Tablet PO (16:34)
[2021-08-02 21:00] VITALS: BP 170/100; PULSE 88; RESP 18; TEMP 37; O2SAT 98
[2021-08-02] MEDS: hydrOXYzine PAM 25 MG Capsule 50 MG PO (21:14)
[2021-08-02] MEDS: 0.9% Saline Lock 10 ML Syringe IV (21:16)
[2021-08-02] MEDS: traZODone 100 MG Tablet PO (23:22)
[2021-08-03] VITALS (8 sets, daily range): BP systolic 116–133; BP diastolic 80–92; PULSE 72–88; RESP 16–18; TEMP 36.6; O2SAT 95–99
[2021-08-03 00:07] LABS: Amphetamine Urine VISTA NEGATIVE (<1000 ng/mL); Barbiturate Urine VISTA POSITIVE (< 200 ng/mL); Benzodiazepine Urine VISTA NEGATIVE (< 200 ng/mL); Cocaine Urine VISTA NEGATIVE (< 300 ng/mL); Ecstacy Urine VISTA NEGATIVE (< 500 ng/mL); Methadone Urine VISTA NEGATIVE (< 300 ng/mL); PCP Urine VISTA NEGATIVE (< 25 ng/mL); THC Urine VISTA POSITIVE (< 50 ng/mL); Vista UDS pH Range 6
[2021-08-03] MEDS: Phenobarbital 32.4 MG Tablet 97.2 MG PO ×5 (00:59→17:03)
[2021-08-03] MEDS: Thiamine Hydrochloride 100 MG Tablet PO (09:05)
[2021-08-03] MEDS: Folic Acid 1 MG Tablet PO (09:05)
--- NOTE | 2021-08-03 10:08 | PN.HOSP_ITS ---
Subjective Subjective Doing well, resting comfortably. CIWA scores of 1 Objective Data Objective Data Vital Signs: Vital Signs Temp Pulse Resp BP Pulse Ox 98 F 80 18 130/80 H 95 08/03/21 09:08 08/03/21 09:08 08/03/21 09:08 08/03/21 09:08 08/03/21 09:08 Oxygen Delivery Method Room Air Weight: 164 lb 14.492 oz Body Mass Index (BMI) 25.8 Intake & Output: Intake and Output for Last 24 Hours 08/02/21 08/03/21 08/04/21 03:59 03:59 03:59 Intake Total 200 / 200 Balance 200 / 200 Lab / Micro Data Result Diagrams: 08/02/21 10:45 08/02/21 10:45 Labs: Laboratory Results - last 24 hr 08/02/21 10:45: WBC 6.0, RBC 4.82, Hgb 15.2 H, Hct 45.1, MCV 93.6, MCH 31.5, MCHC 33.7, RDW Std Deviation 49.9 H, RDW Coeff of Gabriella 14.5, Plt Count 244, MPV 8.8, Immature Gran % (Auto) 0.500, Neut % (Auto) 61.8, Lymph % (Auto) 28.5, [place] % (Auto) 7.0, Eos % (Auto) 1.5, Baso % (Auto) 0.7, Absolute Neuts (auto) 3.7, Absolute Lymphs (auto) 1.70, Nucleated RBC % 0 08/02/21 10:45: Sodium 139, Potassium 3.9, Chloride 105, Carbon Dioxide 30.0, Anion Gap 4 L, BUN 10, Creatinine 0.63, Estim Creat Clear Calc 107.35, Est GFR (MDRD) Af Amer 131, Est GFR (MDRD) Non-Af 108, BUN/Creatinine Ratio 15.9, Glucose 102, Calcium 8.7, Total Bilirubin 0.50, AST 31, ALT 30, Alkaline Phosphatase 84, Total Protein 7.2, Albumin 4.0, Globulin 3.2, Albumin/Globulin Ratio 1.2, Lipase 91 08/02/21 10:45: Ethyl Alcohol 97.0 08/02/21 10:45: Serum , Qual NEGATIVE 08/02/21 23:38: Urine Opiates Screen NEGATIVE, Urine Methadone Screen NEGATIVE, Ur Barbiturates Screen POSITIVE H, Ur Phencyclidine Scrn NEGATIVE, Ur Amphetamines Screen NEGATIVE, MDMA (Ecstasy) Screen NEGATIVE, U Benzodiazepines Scrn NEGATIVE, Urine Cocaine Screen NEGATIVE, U Cannabinoids Screen POSITIVE H, Ur Drug Screen Comment Physical Exam Const alert, oriented x3 and no apparent distress General Appearance: cooperative HEENT normocephalic and moist oral mucous membranes Eyes PERRL, EOMs intact bilaterally and conjunctivae normal Neck supple and no JVD Resp normal respiratory effort, no retractions, no use of accessory muscles and clear to auscultation bilaterally Auscultation: Negative for crackles, rales, rhonchi or wheezes Cardio regular rate, regular rhythm, S1 normal heart sound, S2 normal heart sound and no murmurs GI soft to palpation, non-tender and non-distended; Negative for hepatosplenomegaly Extremity no clubbing, cyanosis or edema Skin no rashes or lesions noted Neuro no focal motor deficits and no sensory deficits noted Psych affect normal Assessment & Plan Assessment/Plan (1) Alcohol withdrawal: QUALIFIERS: Complication of substance-induced condition: uncomplicated Qualified Code(s): F10.230 - Alcohol dependence with withdrawal, uncomplicated PLAN: 1. Acute alcohol withdrawal/history of alcoholic hepatitis/anxiety/depression ? Last use was a around midnight ? Continue with the alcohol withdrawal protocol, will give a dose of phenobarb in the ER given her symptoms and her CIWA of 5 ? We will have her follow-up with 180 to establish outpatient management ? CMP is pending to evaluate for continued alcoholic hepatitis ? We will plan on starting her on Zoloft 2. Tobacco abuse ? She vapes ? We will continue with nicotine patch DVT: Ambulation Charges/Coding Visit Charges Inpatient E&M: 37134 Subs Hosp L2
[2021-08-03] MEDS: Atenolol 25 MG Tablet PO (12:07)
[2021-08-03] MEDS: Sertraline 50 MG Tablet PO (12:07)
--- NOTE | 2021-08-03 20:04 | NURSING ---
pt asked to leave signed ama paper, primary rn, & nursing house moving supervisor aware. pt appreciative of care states she is feeling much better and has resources to follow up for her etoh use. pt states she has personal reasons for wanting to leave and her car is in parking lot so she doesnt need to call anyone for a ride. security here and walked pt out.
== END 2021-08-03 20:00 | disposition left against medical advice (07) | DRG 894 ==
LOC: ED 10:17 → MS3 08-03 20:09
PROVIDERS: Admitting Provider Family Medicine; Emergency Provider Emergency Medicine; PCP Student in an Organized Health Care Education/Training Program; Visit Provider Family Medicine
DX: F10.230 Alcohol dependence with withdrawal, uncomplicated (principal); F17.290 Nicotine dependence, other tobacco product, uncomplicated; K70.10 Alcoholic hepatitis without ascites; I10 Essential (primary) hypertension; F41.9 Anxiety disorder, unspecified; F32.A Depression, unspecified; Z53.29 Procedure and treatment not carried out because of patient's decision for other reasons; Z79.899 Other long term (current) drug therapy; Z81.1 Family history of alcohol abuse and dependence
CPT/HCPCS: 80053; 80307; 82077; 83690; 84703; 85025; 99218; 99284; 99406; A4216; G0378